=== PATIENT | female | born 1980 | race Hispanic/Latino ===

== ENCOUNTER 2016-11-11 06:00 | Day surgery (SDC) | payer MEDICAID ==
--- NOTE | 2016-11-11 07:27 | Anesthesia Consultation ---
Anesthesia Consult and Med Hx Date of service: 11/11/16 - Airway Anesthetic Teeth Evaluation: Good ROM Head & Neck: Adequate Mental/Hyoid Distance: Adequate Mallampati Class: Class II Intubation Access Assessment: Probably Good - Pulmonary Exam CTA: Yes - Cardiac Exam Cardiac Exam: RRR - Pre-Operative Health Status ASA Pre-Surgery Classification: ASA3 Proposed Anesthetic Plan: MAC - Pulmonary Hx Smoking: Yes Hx Sleep Apnea: Yes - Cardiovascular System Hx Hypertension: Yes - Endocrine Hx Non-Insulin Dependent Diabetes: Yes Hx Hypothyroidism: Yes Hx Hyperthyroidism: Yes (2016) - Hematic Hx Anemia: Yes (2YRS) - Other Systems Hx Obesity: Yes (BMI 44)
--- NOTE | 2016-11-11 07:27 | Anesthesia Day of Surgery ---
Anesthesia Day of Surgery - Day of Surgery Patient Examined: Yes Patient H&P Reviewed: Yes Patient is NPO: Yes
--- NOTE | 2016-11-11 07:48 | Discharge Summary ---
Providers - Providers Date of discharge: 11/11/16 Attending physician: MEGAN DE LA VEGA Hospitalization Condition: Good Disposition: DISCHARGED TO HOME OR SELFCARE Core Measure Documentation - Palliative Care Palliative Care/ Comfort Measures: Not Applicable - Core Measures Any of the following diagnoses?: none Exam - Physical Exam Narrative exam: unchanged from pre-op Plan Activity: no restrictions Weight Bearing Status: Full Weight Bearing
[2016-11-11] MEDS ORDERED: NACL 0.9% 1000 ML 1,000 ML IV SCH (08:00)
[2016-11-11] MEDS ORDERED: DIPRIVAN 10 MG/ML IV ONE (09:29)
--- NOTE | 2016-11-11 09:52 | Operative Report ---
Operative Report Operative Report: OPERATIVE REPORT - EGD DATE 11/11/16 SURGERY: Upper endoscopy. SURGEON: Mike Cm M.D. STEAM LOCOMOTIVE FIRER/FIREMAN: PRE OP DX: dyspepsia POST OP DX: TYPE OF ANESTHESIA: MAC. ESTIMATED BLOOD LOSS: None. COMPLICATIONS: None. SPECIMENS REMOVED: None. FINDINGS: 1. Small hiatal hernia. 2. Otherwise, normal esophagus, stomach and first portion of duodenum. INDICATIONS:INDICATION FOR PROCEDURE: Patient is [id number] female with a long history of morbid obesity. She is planned to have a weight loss procedure and is here for preoperative planning EGD. PROCEDURE DETAILS: After consent was reviewed, patient was taken back to the operating room where patient was placed in the left lateral decubitus position and a bite block was placed in the mouth. After a time-out was called, MAC anesthesia was initiated. I then passed the endoscope into her oropharynx, into her esophagus, visualized the entire esophagus, which was all within normal limits. I then visualized the stomach and the first portion of the duodenum and there were no abnormalities I could clearly visualize. I then retroflexed the scope in the stomach and visualized the hiatus and I could see a small hiatal hernia. I then desufflated the stomach and removed the endoscope. Patient tolerated procedure well and was transferred to recovery room in good and stable condition.
[2016-11-11] MEDS ORDERED: XYLOCAINE MPF 2% ONE (10:00)
--- NOTE | 2016-11-11 10:11 | Operative Report ---
Operative Report Operative Report: DATE 11/11/16 SURGERY: Upper endoscopy. SURGEON: Mike Cm M.D. DAIRY FEED MIXING OPERATOR: n/a PRE OP DX: dyspepsia POST OP DX: small hiatal hernia TYPE OF ANESTHESIA: MAC. ESTIMATED BLOOD LOSS: None. COMPLICATIONS: None. SPECIMENS REMOVED: None. FINDINGS: 1. Small hiatal hernia. 2. Otherwise, normal esophagus, stomach and first portion of duodenum. INDICATIONS:INDICATION FOR PROCEDURE: Patient is a 36-year-old female with a long history of morbid obesity. She is planned to have a weight loss procedure and is here for preoperative planning EGD. PROCEDURE DETAILS: After consent was reviewed, patient was taken back to the operating room where patient was placed in the left lateral decubitus position and a bite block was placed in the mouth. After a time-out was called, MAC anesthesia was initiated. I then passed the endoscope into her oropharynx, into her esophagus, visualized the entire esophagus, which was all within normal limits. I then visualized the stomach and the first portion of the duodenum and there were no abnormalities I could clearly visualize. I then retroflexed the scope in the stomach and visualized the hiatus and I could see a small hiatal hernia. I then desufflated the stomach and removed the endoscope. Patient tolerated procedure well and was transferred to recovery room in good and stable condition.
[2016-11-11 10:34] VITALS: BP 136/75
--- NOTE | 2016-11-11 11:01 | Post Anesthesia Evaluation ---
- Post Anesthesia Evaluation Patient Participated: Yes Airway Patent: Yes Stable Respiratory Function: Yes Nausea/Vomiting: No Temp > 96.8F: Yes Pain Manageable: Yes Adequeate Hydration: Yes Anesthesia Complications: No Block Receding Appropriately: Not Applicable Patient on Ventilator: No
[2016-11-11] MEDS ORDERED: WATER FOR IRRIG STERILE IR ONE (15:51)
== END 2016-11-11 06:01 | disposition home or self-care (01) ==
LOC: GIO 06:00
PROVIDERS: ATTEND Surgery
DX: K44.9 Diaphragmatic hernia without obstruction or gangrene (principal); E11.9 Type 2 diabetes mellitus without complications; I10 Essential (primary) hypertension; E03.9 Hypothyroidism, unspecified; K21.9 Gastro-esophageal reflux disease without esophagitis; F41.9 Anxiety disorder, unspecified; E28.2 Polycystic ovarian syndrome; E78.00 Pure hypercholesterolemia, unspecified; E66.01 Morbid (severe) obesity due to excess calories; Z68.41 Body mass index [BMI] 40.0-44.9, adult; Z98.890 Other specified postprocedural states; Z79.84 Long term (current) use of oral hypoglycemic drugs; Z79.899 Other long term (current) drug therapy; Z87.891 Personal history of nicotine dependence
CPT/HCPCS: 43235; 81025; 82962; J2704

== ENCOUNTER 2016-11-18 06:49 | Inpatient (IN) | payer MEDICAID ==
[2016-11-18] MEDS ORDERED: DILAUDID IV PRN (06:58)
[2016-11-18] MEDS ORDERED: SUBLIMAZE IV PRN (06:58)
[2016-11-18] MEDS ORDERED: ZOFRAN IV PRN ×3 (06:58→13:35)
[2016-11-18] MEDS ORDERED: TRANSDERM-SCOP TD NR (07:00)
[2016-11-18] MEDS ORDERED: VERSED IV NR (07:00)
[2016-11-18] MEDS ORDERED: NACL 0.9% 1000 ML 1,000 ML IV SCH (07:00)
[2016-11-18] MEDS ORDERED: PEPCID IV NR (07:00)
[2016-11-18] MEDS ORDERED: DILAUDID ONE ×2 (07:55→14:35)
[2016-11-18] MEDS ORDERED: DIPRIVAN 10 MG/ML IV ONE (07:55)
[2016-11-18] MEDS ORDERED: ANCEF/STERILE WATER 2 GM/20 ML IV NR (08:10)
--- NOTE | 2016-11-18 08:31 | Anesthesia Day of Surgery ---
Anesthesia Day of Surgery - Day of Surgery Patient Examined: Yes Patient H&P Reviewed: Yes Patient is NPO: Yes
--- NOTE | 2016-11-18 08:32 | Anesthesia Consultation ---
Anesthesia Consult and Med Hx Date of service: 11/18/16 - Airway Anesthetic Teeth Evaluation: Good ROM Head & Neck: Inadequate Mental/Hyoid Distance: Inadequate Mallampati Class: Class III Intubation Access Assessment: Possibly Difficult - Pulmonary Exam CTA: Yes (blbs clear) - Cardiac Exam Cardiac Exam: RRR - Pre-Operative Health Status ASA Pre-Surgery Classification: ASA3 Proposed Anesthetic Plan: General - Pulmonary Hx Smoking: Yes (hx d/c x 5 yrs) Hx Sleep Apnea: Yes - Cardiovascular System Hx Hypertension: Yes (on meds) - Gastrointestinal Hx Gastroesophageal Reflux Disease: Yes - Endocrine Hx Non-Insulin Dependent Diabetes: Yes Hx Thyroid Disease: Yes (s/p thyroidectomy) Hx Hyperthyroidism: No - Hematic Hx Anemia: Yes (2YRS) - Other Systems Hx Obesity: Yes (BMI 44)
[2016-11-18 08:42] LABS: Basophils % (Auto) 0.6 % (0.0-1.8); Hematocrit 39.5 % (30.3-42.9); Hemoglobin 13.5 gm/dl (10.1-14.3); Mean Corpuscular HGB Conc 34 % (30-34); Mean Corpuscular Hemoglobin 30 pg (28-32); Mean Corpuscular Volume 89 fl (79-97); Platelet Count 334 K/mm3 (140-440); Red Blood Count 4.42 M/mm3 (3.65-5.03); Red Cell Distribution Width 14.3 % (13.2-15.2); White Blood Count 6.9 K/mm3 (4.5-11.0)
[2016-11-18] MEDS ORDERED: FLAGYL 500 MG/100 ML 500 MG/100 ML BAG IV NR (09:00)
[2016-11-18 09:09] LABS: Alanine Aminotransferase 23 units/L (7-56); Albumin 4.2 g/dL (3.9-5); Albumin/Globulin Ratio 1.4 %; Alkaline Phosphatase 129 units/L (35-129); Anion Gap 18 mmol/L; Blood Urea Nitrogen 10 mg/dL (7-17); Calcium 8.9 mg/dL (8.4-10.2); Carbon Dioxide 26 mmol/L (22-30); Chloride 100.9 mmol/L (98-107); Glucose 97 mg/dL (65-100); Potassium 3.8 mmol/L (3.6-5.0); Sodium 141 mmol/L (137-145); Total Protein 7.2 g/dL (6.3-8.2)
[2016-11-18] MEDS ORDERED: LOVENOX SUB-Q NR (10:20)
[2016-11-18] MEDS ORDERED: XYLOCAINE 1% 20 mL ONE (10:26)
[2016-11-18] MEDS ORDERED: MARCAINE-EPI 0.5%-1:200,000 INFILTRATI ONE ×2 (10:26→10:43)
[2016-11-18] MEDS ORDERED: REGLAN IV PRN (10:26)
[2016-11-18] MEDS ORDERED: APRESOLINE IV PRN (10:26)
[2016-11-18] MEDS ORDERED: MYLICON PO PRN (10:26)
[2016-11-18] MEDS ORDERED: XYLOCAINE 1% 20 mL INFILTRATI ONE (10:43)
[2016-11-18] MEDS ORDERED: NACL 0.9% IR ONE ×2 (10:43)
[2016-11-18] MEDS ORDERED: ZOFRAN ONE ×2 (11:12)
[2016-11-18] MEDS ORDERED: ZEMURON IV ONE (11:12)
[2016-11-18] MEDS ORDERED: DECADRON ONE (11:12)
[2016-11-18] MEDS ORDERED: NEOSTIGMINE ONE (11:13)
[2016-11-18] MEDS ORDERED: ROBINUL ONE (11:13)
[2016-11-18] MEDS ORDERED: BENADRYL ONE (11:14)
[2016-11-18] MEDS ORDERED: NACL 0.9% 1000 ML 1,000 ML ONE (11:25)
--- NOTE | 2016-11-18 13:22 | Operative Report ---
Operative Report Operative Report: Operative Report DATE OF PROCEDURE: 11/18/2016 PREOPERATIVE DIAGNOSES: Morbid obesity, hiatal hernia, cholelithiasis POSTOPERATIVE DIAGNOSES: 1.same as pre-op SURGEON: Mike Cm M.D. METAL HANGING SUPERVISOR: Albino Mccollum MD PROCEDURE: 1. Laparoscopic cholecystectomy 2. laparoscopic sleeve gastrectomy 3. laparoscopic hiatal hernia repair ANESTHESIA: General. ESTIMATED BLOOD LOSS: <5 mL. COMPLICATIONS: None. SPECIMEN: Partial gastrectomy. FINDINGS: 1. hiatal hernia INDICATION FOR PROCEDURE: Patient is a 36-year-old *male with a long history of morbid obesity and symptomatic cholelithiasis. She has tried multiple efforts at weight loss without intermediate card tender success. She is here today for sleeve gastrectomy. PROCEDURE IN DETAIL: After consent was reviewed, patient was taken back to the operating room, where patient was placed supine on the bed with both arms out. The patient's legs were doubly strapped to the bed. Patient had a foot board in place. Patient had a body warmer placed by anesthesia. Patient was then prepped and draped in normal sterile surgical fashion. After a time-out was called, I made a stab incision in the umbilicus and placed a Veress needle through this incision and insufflated the abdomen to 18 mmHg pressure. I then counted down a handsbreadth below the xiphoid process in the midline and slightly left lateral injected local anesthetic and made about 5 mm transverse incision. I then used a 5-mm Optiview trocar to enter into the abdomen. I then placed a 45-degree scope through this port and inspected the abdomen. There was no injury on entry of the abdomen. I then placed two 5-mm ports in the right upper quadrant, one along the anterior axillary line and 1 subxiphoid below the costovertebral angle. I then placed a 15-mm port about a handsbreadth left lateral and inferior to my anterior axillary port. I then placed left upper quadrant port along the anterior axillary line in a similar fashion. We proceed to identify the gallbladder. Appeared contracted and partially intrahepatic. We grasped it and retracted it cephalically. The infundibulum was dissected out but was difficult due to the characteristics of the gallbladder. We decided to proceed with a top to bottom technique. Using monopolar hook we dissected the gallbladder out of its liver bed. Reaching the infundibulum we noticed the cystic artery and was transected with the ligasure device. The nweck of the gallbladder was deep in the liver and wide, therefore we decided to use a stapler blue load across it. The gallbladder containint gallstones was placed in the endoxcatch annd removed from the abdominal cavity through the 15mm trocar I then placed the liver retractor through the subxiphoid port and placed the patient in full reverse Trendelenburg. The right and left crura were skeletonized accentuating a small hiatal hernia. An anterior cruraplasty was perfromed with a figure-of-8 stitch using surgidac suture to reapproximate the crura. I then identified the pylorus and then counted off 6cm from the pylorus. I then used a LigaSure cutting device to enter into the lesser sac. At that point and then I took down the short gastrics all the way up to the left jana. Then I had anesthesia pass down a 36[place] bougie along the lesser curvature of the stomach. I made sure everything else was out of the abdomen except the bougie. I then created my gastric sleeve using a 60-mm laparoscopic stapler. . The sleeve looked good without any twisting or torsion. I then had anesthesia to remove the bougie. Hemostasis was obtained along the staple line. I then used Tiseel along the entirety of the staple line and some on the liver. I then removed liver grasper and took it off the field. I then removed the stomach through the 15-mm port. I then closed that fascia with a #1 PDS in a [id number] fashion using a Ricardo-Robert. I then desufflated the abdomen and then removed all port sites. I then closed the incisions with 4-0 Monocryl in subcuticular fashion. I then dressed the wounds with Dermabond. Patient tolerated the procedure well and was transferred to recovery room in good and stable condition.
[2016-11-18] MEDS: DILAUDID IV PRN ×7 (13:35→23:36)
[2016-11-18] MEDS ORDERED: VERSED ONE (14:20)
[2016-11-18] MEDS ORDERED: VERSED IV ONE (14:25)
[2016-11-18] MEDS ORDERED: PROAIR IH ONE (14:30)
[2016-11-18] MEDS ORDERED: DILAUDID IV ONE (14:46)
--- NOTE | 2016-11-18 15:22 | Admit Criteria Form ---
Admission Criteria Documentation: AMBULATORY SURGERY EXCEPTION CRITERIA Ambulatory Surgery Exception Criteria ( Place 'X' for any and all applicable criteria): Surgery or procedure performed on ambulatory basis may require inpatient stay for[A] ANY ONE of the following(1)(2)(3)(4)(5)(6)(7)(8)(9): [X] I. A preoperative situation, condition, or finding that warrants inpatient stay as indicated by ANY ONE of the following: [] a) Inpatient care needed because of severity of a disease or condition rather than the surgery (eg, severe cardiac or respiratory disease, severe infection) (15) (16 ) (17) (18) [] b) Emergent procedure (eg, angioplasty for acute ischemia)(19) [] c) Complex surgical approach or situation as indicated by ANY ONE of the following(3): [] i) Open approach needed instead of usual endoscopic, transcatheter, or other less invasive procedure [] ii) Difficult approach because of previous operation [] iii) Airway monitoring required after open neck procedures(20)(21) [] iv) Large mass requiring unusually extensive dissection [] v) Additional complicating feature requiring inpatient care (eg, drain management)(22(23): [X] d) Major surgery in a pt with high anesthetic risk as indicated by ANY ONE of the following (2)(3)(5)(7)(8): [X] i) ASA risk class III or higher (severe systemic disease impairing function) [D] [] ii) Advanced age (eg, older than 85 years)(14)(24) [] iii) Symptomatic heart failure(25) [] iv) Symptomatic asthma or COPD(8)(21) [] v) Morbid obesity with hemodynamic or respiratory problems(20)( 21)(26)(27) [] vi) Obstructive sleep apnea(20)(21) [] vii) Former premature infants who are younger than 60 weeks [] viii) High risk for severe postoperative abnormalities (eg, severe postoperative hypocalcemia after parathyroidectomy for severe hyperparathyroidism)(27)( 28) [] ix) Unstable angina(25) [] e) Drug-related risk requiring inpatient stay as indicated by ANY ONE of the following(5)(10)(14)(32)(33) [] i) Procedure requires discontinuing drugs or other therapy (eg , antiarrhythmic medication, antiseizure medication), which necessitates inpatient observation or treatment.(18)(31) [] ii) Major surgery and high risk drug use as indicated by ANY ONE of the following: [] 1) Active abuse of cocaine or similar drug [] 2) Monoamine oxidase inhibitor use [] 3) Other drug identified as posing risk [] f) Inadequate outpatient care situation as indicated by ANY ONE of the following(5)(10)(14)(32)(33) [] i) Patient lives remote from medical facility and procedure has urgent complication potential, and temporary nearby residence cannot be arranged [] ii) Patient will have postprocedure incapacitation and inadequate assistance at home, or alternative level of care cannot be arranged. [] iii) Patient will have long general anesthesia or procedure side effect resolution time, and competent person to stay with patient on first postoperative night at home or alternative level of care cannot be arranged. []iv) Other inadequate outpatient situation that cannot be handled by other means [] II. A perioperative event, condition, or finding that warrants inpatient stay as indicated by ANY ONE of the following (1)(2)(3): [] a) Inadequate physiologic recovery: cardiovascular, respiratory, or hemodynamic status not normal or near preoperative baseline(18) [] b) Hemodynamic instability [] c) Patient not alert with near normal or baseline mental status [] d) Temperature not normal or as expected and not appropriate for outpatient treatment of condition [] e) Ambulatory or appropriate activity level status not yet achieved post procedure [E](34)(35)(36) [] f) Operative site not appropriate (eg, unexpected or excessive drainage or bleeding) [] g) Postoperative effects not resolved or adequately managed (eg, significant pain or vomiting not appropriate for outpatient or next level of care)(10)(12) [] h) Complicating features requiring inpatient care as indicated by ANY ONE of the following(37): [] i) Severe complications of procedure (eg, bowel injury, airway compromise, vascular injury,severe hemorrhage) [] ii) Extensive (eg, dissection far beyond usual scope of procedure ) or prolonged (eg, 120 minutes beyond usual) surgery needed requiring inpatient postoperative care [] iii) Conversion to an open or complex procedure that requires inpatient care (eg, open vs laparoscopic cholecystectomy, abdominal vs vaginal hysterectomy)(38) [] iv) Comorbid condition or test result identified during or post procedure that requires inpatient care (7) [] v) Malignant hyperthermia(30) [] vi) Other complicating feature requiring inpatient care(22)(23) Inpatient stay may be needed until ALL of the following are present (1)(2)(3)(4) (5)(6)(10)(14)(33)(40): []a) Physiologic recovery: cardiovascular, respiratory, and hemodynamic status normal or near preoperative baseline []b) Hemodynamic stability []c) Patient alert, with near normal or baseline mental status []d) Temperature appropriate: patient afebrile or temperature appropriate for outpt treatment of condition []e) Activity level appropriate: ambulatory or appropriate activity level post procedure []f) Operative site appropriate as indicated by ALL of the following: []i) Site dry or with expected drainage []ii) Any blood noted is as expected for procedure. []g) Postoperative effects resolved or managed as indicated by ALL of the following: []i) Pain management appropriate for outpatient (or next level of) care(10) []ii) Minimal nausea and vomiting: if present, successfully treated with oral medication(12) []iii) Headache, dizziness, or drowsiness (if present) are mild. []h) Voiding status acceptable as indicated by ANY ONE of the following: []i) Voiding spontaneously []ii) No voiding but instructions given for follow-up in 6 to 8 hours []iii) Urinary catheter in place, and instructions given for follow-up []i) Complicating features requiring inpatient care manageable at a lower level of care(37) []j) Comorbid conditions manageable at a lower level of care(37) The original [employer] content created by [employer] has been revised. The portions of the content which have been revised are identified through the use of italic text or in bold, and [facility] [employer] has neither reviewed nor approved the modified material. All other unmodified content is copyright [employer]. Please see references footnoted in the original [employer] edition 2016 Admission Criteria Met: Yes
[2016-11-18] MEDS: TORADOL IV SCH ×3 (16:10→23:39)
[2016-11-18] MEDS: FLAGYL 500 MG/100 ML 500 MG/100 ML BAG IV SCH ×2 (16:49→22:53)
[2016-11-18] MEDS: ANCEF/NS 1 GM/50 ML 1 GM/50 ML BAG IV SCH ×2 (18:00→22:52)
[2016-11-19] MEDS ORDERED: NORCO PO PRN (06:00)
[2016-11-19] MEDS ORDERED: SYNTHROID 112 MCG, SYNTHROID 25 MCG PO SCH (06:00)
[2016-11-19] MEDS ORDERED: SYNTHROID PO SCH ×2 (06:00)
[2016-11-19] MEDS: DILAUDID IV PRN ×2 (06:03→09:44)
[2016-11-19] MEDS: FLAGYL 500 MG/100 ML 500 MG/100 ML BAG IV SCH (06:04)
[2016-11-19] MEDS: LACTATED RINGERS 1,000 ML IV SCH ×2 (06:05→10:45)
[2016-11-19] MEDS: TORADOL IV SCH (09:01)
[2016-11-19] MEDS ORDERED: LOVENOX SUB-Q SCH (10:00)
--- NOTE | 2016-11-19 10:22 | Progress Note ---
Subjective Date of service: 11/19/16 Interval history: Resting in bed. Up ambulating PRN. No N/V. Pain at 6 controlled with meds. Denies sore throat Hoarseness. No anesthetic complications noted. Objective - Constitutional Vitals: Vital Signs - 12hr 11/19/16 11/19/16 11/19/16 00:02 08:00 08:29 Temperature 98.7 F 97.8 F Pulse Rate [ 60 58 L From Monitor] Respiratory 20 18 Rate Blood Pressure 126/71 88/59 [Right Arm] O2 Sat by Pulse 96 99 96 Oximetry - Labs CBC & Chem 7: 11/18/16 08:15 11/18/16 08:15 Labs: Abnormal lab results 11/18/16 Range/Units 13:22 POC Glucose 210 H (70-105)
[2016-11-19 12:35] VITALS: BP 111/68
[2016-11-19 13:19] LABS: Alanine Aminotransferase 48 units/L (7-56); Albumin 3.7 g/dL (3.9-5); Albumin/Globulin Ratio 1.4 %; Alkaline Phosphatase 103 units/L (35-129); Anion Gap 17 mmol/L; BUN/Creatinine Ratio 12.85; Blood Urea Nitrogen 9 mg/dL (7-17); Calcium 8.1 mg/dL (8.4-10.2); Carbon Dioxide 25 mmol/L (22-30); Chloride 100.5 mmol/L (98-107); Glucose 85 mg/dL (65-100); Potassium 3.8 mmol/L (3.6-5.0); Sodium 139 mmol/L (137-145); Total Protein 6.3 g/dL (6.3-8.2)
[2016-11-19 13:20] LABS: Basophils % (Auto) 0.2 % (0.0-1.8); Eosinophils % (Auto) 0.2 % (0.0-4.3); Hematocrit 34.4 % (30.3-42.9); Hemoglobin 11.3 gm/dl (10.1-14.3); Mean Corpuscular HGB Conc 33 % (30-34); Mean Corpuscular Hemoglobin 30 pg (28-32); Mean Corpuscular Volume 91 fl (79-97); Platelet Count 312 K/mm3 (140-440); Red Blood Count 3.79 M/mm3 (3.65-5.03); Red Cell Distribution Width 14.3 % (13.2-15.2); White Blood Count 12.8 K/mm3 (4.5-11.0)
--- NOTE | 2016-11-19 14:49 | Discharge Summary ---
Providers - Providers Date of Admission: 11/18/16 14:14 Date of discharge: 11/19/16 Attending physician: MEGAN DE LA VEGA Primary care physician: ASSISTED LIVING COORDINATOR Hospitalization Reason for admission: post op observation Condition: Stable Procedures: lap sleeve gastrectomy Disposition: DISCHARGED TO HOME OR SELFCARE Core Measure Documentation - Palliative Care Palliative Care/ Comfort Measures: Not Applicable - Core Measures Any of the following diagnoses?: none Exam - Physical Exam Narrative exam: VSS NAD Lungs CTA BL Heart RRR Abd soft, ND, appropriate TTP around wounds Neuro: AAOx3 - Constitutional Vitals: Temp Pulse Resp BP Pulse Ox 97.9 F 55 L 18 111/68 100 11/19/16 12:00 11/19/16 12:00 11/19/16 12:00 11/19/16 12:00 11/19/16 12:00 Plan Activity: advance as tolerated Diet: other (bariatric stage 1) Wound: keep clean and dry Special Instructions: no heavy lifting Follow up with: PRIMARY CAREMD [Primary Care Provider] - 7 Days
== END 2016-11-19 15:00 | disposition home or self-care (01) | DRG 621 ==
LOC: OR 06:49 → 2B-SURG 14:14
PROVIDERS: ADMIT Surgery; ATTEND Surgery
PROC: 0DB64Z3 Excision of Stomach, Percutaneous Endoscopic Approach, Vertical (ICD-10-PCS; principal; 2016-11-18)
PROC: 0FT44ZZ Resection of Gallbladder, Percutaneous Endoscopic Approach (ICD-10-PCS; 2016-11-18)
PROC: 0BQS4ZZ (ICD-10-PCS; 2016-11-18)
PROC: 0BQR4ZZ (ICD-10-PCS; 2016-11-18)
DX: E66.01 Morbid (severe) obesity due to excess calories (principal); K80.20 Calculus of gallbladder without cholecystitis without obstruction; K44.9 Diaphragmatic hernia without obstruction or gangrene; E78.00 Pure hypercholesterolemia, unspecified; K21.9 Gastro-esophageal reflux disease without esophagitis; I10 Essential (primary) hypertension; E11.9 Type 2 diabetes mellitus without complications; Z68.41 Body mass index [BMI] 40.0-44.9, adult; Z91.030 Bee allergy status; Z87.891 Personal history of nicotine dependence
CPT/HCPCS: 36415; 80053; 81025; 82962; 85025; 88304; 88307; 94760; A4217; C9250; J0690; J1100; J1170; J1200; J1650; J1885; J2250; J2405; J2704; J2710; J7030; J7120

== ENCOUNTER 2017-09-05 06:27 | Day surgery (SDC) | payer MEDICAID ==
[2017-09-05] MEDS ORDERED: HURRICAINE ONE 20% TOPICAL SPRAY MM (07:24)
[2017-09-05] MEDS ORDERED: WATER FOR IRRIG STERILE IR ONE (07:24)
--- NOTE | 2017-09-05 08:09 | Operative Report ---
Operative Report Operative Report: OPERATIVE REPORT - EGD DATE 09/05/17 SURGERY: Upper endoscopy. SURGEON: Mike Cm M.D. PRE OP DX: GERD POST OP DX: TYPE OF ANESTHESIA: MAC. ESTIMATED BLOOD LOSS: None. COMPLICATIONS: None. SPECIMENS REMOVED: None. FINDINGS: 1. normal gastric sleeve anatomy INDICATIONS:INDICATION FOR PROCEDURE: Patient is a 37-year-old female with a history of gastric sleeve. she has been complaining of unrelenting GERD despite being on ant-acids, carafate, and reglan. we are looking for any abnormal anatomy or pathology that may be contributing to her symptoms. PROCEDURE DETAILS: After consent was reviewed, patient was taken back to the operating room where patient was placed in the left lateral decubitus position and a bite block was placed in the mouth. After a time-out was called, MAC anesthesia was initiated. I then passed the endoscope into her oropharynx, into her esophagus, visualized the entire esophagus, which was all within normal limits. I then visualized the stomach which was appropriately narrowed, and the first portion of the duodenum and there were no abnormalities I could clearly visualize. There was some acid visible in the body of the stomach. I then desufflated the stomach and removed the endoscope. Patient tolerated procedure well and was transferred to recovery room in good and stable condition.
--- NOTE | 2017-09-05 08:11 | Anesthesia Day of Surgery ---
Anesthesia Day of Surgery - Day of Surgery Patient Examined: Yes Patient H&P Reviewed: Yes Patient is NPO: Yes
--- NOTE | 2017-09-05 08:11 | Anesthesia Consultation ---
Anesthesia Consult and Med Hx Date of service: 09/05/17 - Airway Anesthetic Teeth Evaluation: Good ROM Head & Neck: Adequate Mental/Hyoid Distance: Adequate Mallampati Class: Class II Intubation Access Assessment: Probably Good - Pre-Operative Health Status ASA Pre-Surgery Classification: ASA2 Proposed Anesthetic Plan: MAC - Pulmonary Hx Smoking: Yes (hx d/c x 5 yrs) Hx Sleep Apnea: Yes - Cardiovascular System Hx Hypertension: Yes (no meds after weight loss) - Gastrointestinal Hx Gastroesophageal Reflux Disease: Yes - Endocrine Hx Non-Insulin Dependent Diabetes: Yes (no meds after weight loss) Hx Thyroid Disease: Yes (s/p thyroidectomy) Hx Hyperthyroidism: No - Hematic Hx Anemia: Yes (2YRS) - Other Systems Hx Obesity: Yes (lost 95 lbs after the surgery)
--- NOTE | 2017-09-05 08:15 | Discharge Summary ---
Providers - Providers Date of discharge: 09/05/17 Attending physician: MEGAN DE LA VEGA Hospitalization Condition: Good Procedures: egd Hospital course: pt had an uneventful egd as part of work up for GERD after a history of sleeve gastrectomy Disposition: -01 TO HOME OR SELFCARE Core Measure Documentation - Palliative Care Palliative Care/ Comfort Measures: Not Applicable - Core Measures Any of the following diagnoses?: none Exam - Physical Exam Narrative exam: unchanged from pre-op Plan Activity: no restrictions Weight Bearing Status: Weight Bear as Tolerated Diet: regular Follow up with: ALPHONSE NAJERA MD [Other] - 7 Days
[2017-09-05] MEDS ORDERED: DIPRIVAN 10 MG/ML IV ONE (08:38)
[2017-09-05] MEDS ORDERED: VERSED ONE (08:38)
--- NOTE | 2017-09-05 08:52 | Post Anesthesia Evaluation ---
- Post Anesthesia Evaluation Patient Participated: Yes Airway Patent: Yes Stable Respiratory Function: Yes Nausea/Vomiting: No Temp > 96.8F: Yes Pain Manageable: Yes Adequeate Hydration: Yes Anesthesia Complications: No Block Receding Appropriately: Not Applicable Patient on Ventilator: No (spontanous )
[2017-09-05] MEDS ORDERED: NACL 0.9% 1000 ML 1,000 ML IV SCH (09:00)
[2017-09-05 09:15] VITALS: BP 123/81
== END 2017-09-05 06:28 | disposition home or self-care (01) ==
LOC: GIO 06:27
PROVIDERS: ATTEND Surgery
DX: K21.9 Gastro-esophageal reflux disease without esophagitis (principal); E11.9 Type 2 diabetes mellitus without complications; I10 Essential (primary) hypertension; G47.30 Sleep apnea, unspecified; E66.9 Obesity, unspecified; Z87.891 Personal history of nicotine dependence; Z98.84 Bariatric surgery status
CPT/HCPCS: 43235; 81025; J2250; J2704; J7030